=== PATIENT | male | born 1975 | race African-American/Black ===

== ENCOUNTER 2019-11-30 11:47 | Emergency (ER) | payer MEDICAID ==
[~2019-11-30] VITALS: Ht 190.5 cm; Wt 100.0 kg
[2019-11-30] MEDS ORDERED: AMOXICILLIN/POTASSIUM CLAVULANATE 875/125MG TAB PO ONE (13:00)
[2019-11-30] MEDS ORDERED: IBUPROFEN 600MG TABLET PO ONE (13:00)
[2019-11-30 13:38] VITALS: BP 117/78
== END 2019-11-30 13:40 | disposition home or self-care (01) ==
LOC: ER 12:22
DX: H66.92 Otitis media, unspecified, left ear (principal); R50.9 Fever, unspecified; J02.9 Acute pharyngitis, unspecified
CPT/HCPCS: 99283

== ENCOUNTER 2020-01-29 06:21 | Emergency (ER) | payer MEDICAID ==
[~2020-01-29] VITALS: Ht 188 cm; Wt 94.7 kg
[2020-01-29] MEDS ORDERED: IBUPROFEN 600MG TABLET PO ONE (06:45)
[2020-01-29 08:56] VITALS: BP 116/75
== END 2020-01-29 08:57 | disposition home or self-care (01) ==
LOC: ER 06:21
DX: J06.9 Acute upper respiratory infection, unspecified (principal)
CPT/HCPCS: 71045; 82962; 87070; 87430; 87804; 99284

== ENCOUNTER 2021-08-21 11:24 | Emergency (ER) | payer MEDICAID ==
[~2021-08-21] VITALS: Ht 190.5 cm; Wt 87.0 kg
[2021-08-21 11:44] VITALS: BP 110/66
[2021-08-21] MEDS ORDERED: TETANUS, DIPHTHERIA, PERTUSSIS VAC/PF 0.5ML (>7YR OLD) IM ONE (12:15)
[2021-08-21] MEDS ORDERED: IBUP-2029 MT (12:40)
== END 2021-08-21 12:49 | disposition home or self-care (01) ==
LOC: ER 11:24
DX: S69.91XA Unspecified injury of right wrist, hand and finger(s), initial encounter (principal); Y08.89XA Assault by other specified means, initial encounter; Y93.89 Activity, other specified; Y92.89 Other specified places as the place of occurrence of the external cause; Y99.8 Other external cause status
CPT/HCPCS: 73130; 90471; 90715; 99283

== ENCOUNTER 2021-10-06 10:03 | Emergency (ER) | payer MEDICAID ==
[~2021-10-06] VITALS: Ht 190.5 cm; Wt 87.0 kg
[~2021-10-06 10:03] MED LIST: IBUP-2029 MT
[2021-10-06] MEDS ORDERED: IBUPROFEN 800MG TABLET PO ONE (11:00)
[2021-10-06] MEDS ORDERED: ACETAMINOPHEN 500MG TABLET PO ONE (11:00)
[2021-10-06] MEDS ORDERED: AMOXICILLIN/POTASSIUM CLAVULANATE 875/125MG TAB PO ONE (11:15)
[2021-10-06 11:55] VITALS: BP 120/62
[2021-10-06] MEDS ORDERED: BACITRACIN ZINC OINT UDPKT TOP ONE (12:30)
[2021-10-06] MEDS ORDERED: HYDR-4001 MT (12:51)
[2021-10-06] MEDS ORDERED: AMOX-424 MT (12:51)
== END 2021-10-06 13:18 | disposition home or self-care (01) ==
LOC: ER 10:03
DX: S60.221A Contusion of right hand, initial encounter (principal); L08.9 Local infection of the skin and subcutaneous tissue, unspecified; Y04.1XXA Assault by human bite, initial encounter; Y93.89 Activity, other specified; Y92.89 Other specified places as the place of occurrence of the external cause
CPT/HCPCS: 73130; 99284